=== PATIENT | female | born 1975 | race Two or more races ===

== ENCOUNTER 2017-04-04 09:05 | Emergency (ER) | payer OTHER ==
[2017-04-04 09:11] VITALS: BP 155/105; PULSE 91; RESP 16; TEMP 97.9; O2SAT 98
--- NOTE | 2017-04-04 09:39 | EDPHY ---
General - History Smoking Status: Never smoked Narrative: CHIEF COMPLAINT: Finger laceration HISTORY OF PRESENT ILLNESS: Patient presents with complaints of laceration to the left finger. This is on the palmar side over the middle phalanx. Happened around 8:00 a.m.. She was trying to fix her glasses with a knife when she slipped off of a glasses and accidentally cut herself. No numbness or tingling. No pulsatile bleeding. No difficulty bending or straightening the finger. No weakness. No injury elsewhere. No broken glass or particulate matter. She thinks she is less than 5 years on her last tetanus immunization. No other associated complaints or modifying factors TIME OF INJURY: Approximately a.m. TETANUS STATUS: Less than 5 years ago MEDICAL/SURGICAL/SOCIAL HISTORY: Denies any ongoing medical diagnoses REVIEW OF SYSTEMS: Ten systems reviewed and are negative unless otherwise noted in the HPI EXAMINATION General Appearance: Alert, no distress Head: normocephalic, atraumatic Cardiovascular: Symmetric radial pulses 2+. Brisk cap refill Neurological: A&O, 2 point sensation intact symmetrically on the index fingers. Excellent interossei strength symmetric. Skin: Warm and dry, no rash. 2 cm laceration of the left index finger, middle phalanx palmar side. No pulsatile bleeding. No exposure of the tendon. No foreign body. Extremities: Tender over the area laceration. Full flexion extension including superficialis and profundus flexion. Neurovascular intact distal to the laceration. DIFFERENTIAL DIAGNOSES: Including but not limited to finger laceration, complex finger laceration, laceration with tendon injury MDM: 9:20 a.m. Laceration to left index finger, palmar side, middle phalanx. No evidence of tendon injury. Neurovascular intact distally. Tetanus is up-to-date. I have administered a digital block. Proceed with irrigation and closure. No need for x-ray as this was a knife laceration. 10:10 a.m. Simple laceration of the left finger without tendon injury. She is neurovascular intact postprocedure. Full flexion extension retained. She will be placed in a 2 day dressing. We discussed wound care. We discussed ED precautions. We discussed returning to the emergency department in 7-10 days for suture removal. She is comfortable this plan and discharged home stable condition PROCEDURE: Laceration repair Consent: Verbal Location: Left index finger Length of repair: 2 cm Complexity: Simple Layer involvement: Single Anesthesia: Digital block Irrigation: Extensive Debridement: None Procedure description: Following good anesthesia, the wound was copiously irrigated. Wound bed was explored with a sterile glove, and there is no foreign body noted. No injury to the tendon. Wound borders were approximated well with good hemostasis. Tolerated well without complication. Suture/Staple material: 5-0 Ethilon. Three simple interrupted sutures Wound care: Routine as discussed Suture/Staple removal: 7-10 Days PROCEDURE: Digital Block Indication: Finger laceration Consent: Verbal Location: Left index finger Anesthesia: Lidocaine 1% plain, 0.25% Marcaine plain, 5mL Description: Base of the finger was prepped. The above was infused without difficulty. Tolerated well. Good anesthesia. Complications: None SUPERVISION: This patient was independently evaluated without direct involvement of or examination by the attending physician. ED Precautions: Worsening pain. Erythema, edema, cyanosis, pallor, paresthesia or anesthesia. (Jordin Way) The patient was evaluated and managed by the physician clerical assistant. I have reviewed this chart and I agree with the findings and plan of care as documented , as indicated by my signature. I am the secondary supervising physician. ( Missy Valadez) - Objective Vital Signs: Initial Vital Signs Temperature (C) 36.6 C 04/04/17 09:08 Heart Rate 91 04/04/17 09:08 Respiratory Rate 16 04/04/17 09:08 Blood Pressure 155/105 H 04/04/17 09:08 O2 Sat (%) 98 04/04/17 09:08 O2 Delivery Mode Room Air Allergies/Adverse Reactions: Penicillins Allergy (Verified 04/04/17 09:08) Home Medications: Medication Instructions Recorded NK [No Known Home Meds] 04/04/17 Departure - Departure Disposition: Home, Routine, Self-Care Clinical Impression: Laceration of index finger of left hand without complication Qualifiers: Encounter type: initial encounter Qualified Code(s): S61.211A - Laceration without foreign body of left index finger without damage to nail, initial encounter Condition: Good Instructions: Care For Your Stitches (ED), Laceration (ED) Additional Instructions: 1. Ibuprofen 600 mg every 8 hr for 1-2 days 2. ED precautions for signs of infection should that develop 3. Wound care as discussed 4. Return to emergency department in 7-10 days for suture removal Referrals: [facility] ,. [Edm Groups for Call Sched] - As per Instructions
== END 2017-04-04 10:30 | disposition home or self-care (01) ==
PROC: 0HQGXZZ Repair Left Hand Skin, External Approach (ICD-10-PCS; principal; 2017-04-04)
DX: S61.211A Laceration without foreign body of left index finger without damage to nail, initial encounter (principal); W25.XXXA Contact with sharp glass, initial encounter